=== PATIENT | male | born 1965 | race Caucasian/White ===

== ENCOUNTER → 2022-10-24 10:18 | Outpatient (BNVA) | payer MEDICARE, MEDICAID, SELFPAY | PROVIDERS: PCP Internal Medicine; Visit Provider Dietitian, Registered | DX: E11.9 Type 2 diabetes mellitus without complications (principal) | CPT/HCPCS: 97802 ==

== ENCOUNTER → 2022-12-20 10:02 | Outpatient (BNVA) | payer MEDICARE, MEDICAID, SELFPAY | PROVIDERS: PCP Internal Medicine; Visit Provider Dietitian, Registered | DX: E11.9 Type 2 diabetes mellitus without complications (principal); K85.90 Acute pancreatitis without necrosis or infection, unspecified; K08.109 Complete loss of teeth, unspecified cause, unspecified class; Z99.3 Dependence on wheelchair; Z71.3 Dietary counseling and surveillance | CPT/HCPCS: 97803 ==

== ENCOUNTER 2024-05-12 10:53 | Outpatient (AMB) | payer MEDICARE, MEDICAID, SELFPAY ==
--- NOTE | 2024-05-12 11:26 | A.OFFVIS_ITS ---
VS Expanded 05/12/24 12:36 05/24/24 10:06 Height 5 ft 7 in 5 ft 7 in Weight 135 lb 135 lb BMI 21.1 21.1 Intake Visit Reasons: DM/LVM Allergies morphine [MORPHINE] Allergy (Unknown, Unverified 07/27/20 17:29) UNKNOWN Nutrition Presentation Details: Pt presents for MNT for uncontrolled T2DM. Pt was referred by [facility] Pt resides in [facility] and is accompanied by staff during this appt. Pt has hx of anoxic encephalopathy, dementia, non verbal, is wheel chair bound Pt has a glucose sensor and BG for the past 2 weeks average at 208 mg/dl. Per reports Pt is having elevated blood glucose post breakfast and post dinner Pt BG report 38% within target, 32% high, 29% very high and 1% hypoglycemia between 54-69. Lower BG are typically at around 2-3 pm Pt currently has pure meals due to lack of dentures Group staff need information on meal planning, carb counting concept nursing home fax # [phone] BS Monitoring Most Recent Diabetes Results: No Data to Display MAH-Kotzuvp-Zn.Jeor Equation Height: 5 ft 7 in Weight: 135 lb Resting Metabolic Rate: 1390.08 Calculated Activity Level: Sedentary Calories Needed to Maintain Weight: 1668.10 Diagnosis Nutrition problem #1: food nutri know defi As related to (etiology) #1: diagnosis As evidenced by (sign/symptom) #1: knowledge deficit of diet Assessment & Plan Assessment & Plan (1) T2DM (type 2 diabetes mellitus): Code(s): E11.9 - Type 2 diabetes mellitus without complications Category: Medical Plan: Discuss importance of consistency of carb intake per meal and snack to prevent high fluctuation in blood glucose level and prevention of hypoglycemia. ? Used wt : 59 kg Est kcal as per MSJ: 1947-250 = 1748 (40% carb, 30% fat/prot) Est fluid needs: 1800 ml/d (25 ml/kg bw) Rec fiber: increase to 8-10 g per day and gradually increase to 25 g/d 35 g as tolerated Rec Na: < 1500 2000 mg /d Educate patient on: (R= Reviewed, V = verbalizes understanding N/R= Needs review N/A= not applicable) * Food sources of carbohydrates and serving adequate serving sizes : R - and written information provided * Difference between complex carbohydrates and simple carbohydrates, role of fiber: R * Differences between fats (MUFA/PUFA/saturated fats, trans fats) and food sources of various fats: R (basic low fat and low fat food options was discussed and printed information provided to staff to share with rest of staff in [facility]) * Food sources of sodium and salt and healthy modifications for heart health and kidney health: R V N/R * Vitamins and minerals: R V N/R * How to interpret food labels: R V N/R * Healthy Plate method concept: R V N/R * Physical activity: benefits and precaution: R V N/R Patient Instructions: Work on balancing meals following healthy plate method concept Work on providing a consistent amount of carbohydrates ranging from 80-100 g per meal and 20 g of carb for a snack with 1-2 serving of protein see meal plan ideas call for questions or concerns Coding Level of Care Code Nutr Indiv Subseq (38549) Diagnoses T2DM (type 2 diabetes mellitus) E11.9 Time Spent (min) 30
[2024-05-12 12:36] VITALS: BMI 21.1
[2024-05-24 10:06] VITALS: BMI 21.1
== END 2024-05-12 11:43 | disposition home or self-care (01) ==
PROVIDERS: PCP Internal Medicine; Visit Provider Dietitian, Registered
DX: E11.9 Type 2 diabetes mellitus without complications (principal)

== ENCOUNTER → 2024-05-12 10:53 | Outpatient (BNVA) | payer MEDICARE, MEDICAID, SELFPAY | PROVIDERS: PCP Internal Medicine; Visit Provider Dietitian, Registered | DX: E11.9 Type 2 diabetes mellitus without complications (principal); Z71.3 Dietary counseling and surveillance | CPT/HCPCS: 97803 ==

== ENCOUNTER 2024-07-13 11:01 | Outpatient (AMB) | payer MEDICARE, MEDICAID, SELFPAY ==
[2024-07-13 08:58] VITALS: BMI 21.1
--- NOTE | 2024-07-13 11:10 | A.OFFVIS_ITS ---
VS Expanded 07/13/24 08:58 Height 5 ft 7 in Weight 134 lb 8.6 oz BMI 21.1 Intake Visit Reasons: DM/CONFIRMED Allergies morphine [MORPHINE] Allergy (Unknown, Unverified 07/27/20 17:29) UNKNOWN Nutrition Presentation Details: Pt presents for MNT f/u for T2DM Pt presents with staff from [facility]. Pt is non verbal and is on puree diet. Staff reports Pt consumes 100% of his meals Pt is on a glucose sensor and in the last 14 days bg average at 183 mg/dl, 52% within target, 27% > 180, 17% above 250, 4% below 70, none below 54 % Per staff, hypoglycemia episodes have lessened. It appears that int he past 2 weeks, Pt had an episode at night. Pt is on puree foods Typical meal (4 egg and 4 sausages, bread or pancake or cereal and glucerna (glucose control) 8 am yogurt Lunch pizza/or sandwich and vegetables puree with broth or with milk) dinner: poultry/rice / vegetables , (varies ) bedtime yogurt with peanut butter BS Monitoring Most Recent Diabetes Results: No Data to Display Assessment & Plan Assessment & Plan (1) T2DM (type 2 diabetes mellitus): Code(s): E11.9 - Type 2 diabetes mellitus without complications Category: Medical Plan: May recommend adding a fruit to yogurt/peanut butter at bedtime to prevent nocturnal hypoglycemia Continue hydration ? Used wt : 59 kg Est kcal as per MSJ: 1947-250 = 1748 (40% carb, 30% fat/prot) Est fluid needs: 1800 ml/d (25 ml/kg bw) Rec fiber: increase to 8-10 g per day and gradually increase to 25 g/d 35 g as tolerated Rec Na: < 1500 2000 mg /d Educate patient on: (R= Reviewed, V = verbalizes understanding N/R= Needs review N/A= not applicable) * Food sources of carbohydrates and serving adequate serving sizes : R - and written information provided * Difference between complex carbohydrates and simple carbohydrates, role of fiber: R * Differences between fats (MUFA/PUFA/saturated fats, trans fats) and food sources of various fats: R (basic low fat and low fat food options was d iscussed and printed information provided to staff to share with rest of staff in [facility]) * Food sources of sodium and salt and healthy modifications for heart health and kidney health: R V N/R * Vitamins and minerals: R V N/R * How to interpret food labels: R V N/R * Healthy Plate method concept: R V * Physical activity: benefits and precaution: R V N/R * Bedtime snack, combination of carb/protein : R * Hydration: reviewed Patient Instructions: Add a fruit to the yogurt/peanut butter bedtime snack to prevent nocturnal hypoglycemia Coding Level of Care Code Nutr Indiv Subseq (47081) Diagnoses T2DM (type 2 diabetes mellitus) E11.9 Time Spent (min) 30
== END 2024-07-13 11:57 | disposition home or self-care (01) ==
PROVIDERS: PCP Internal Medicine; Visit Provider Dietitian, Registered
DX: E11.9 Type 2 diabetes mellitus without complications (principal)

== ENCOUNTER → 2024-07-13 11:01 | Outpatient (BNVA) | payer MEDICARE, MEDICAID, SELFPAY | PROVIDERS: PCP Internal Medicine; Visit Provider Dietitian, Registered | DX: E11.9 Type 2 diabetes mellitus without complications (principal); Z71.3 Dietary counseling and surveillance | CPT/HCPCS: 97803 ==